=== PATIENT | male | born 1935 | race Caucasian/White ===

== ENCOUNTER → 2021-01-06 02:55 | Outpatient (CLI) | payer MEDICARE, SELFPAY ==
[2021-01-06 21:05] LABS: SARS-CoV-2 RNA PCR Negative
== END ==
PROVIDERS: PCP Internal Medicine; Visit Provider Plastic Surgery
DX: Z01.812 Encounter for preprocedural laboratory examination (principal); Z20.822 Contact with and (suspected) exposure to COVID-19
CPT/HCPCS: 36415; 85610; 85730; 93005; C9803; U0003; U0005

== ENCOUNTER 2021-01-06 12:46 | Outpatient (CLI) | payer MEDICARE, SELFPAY ==
--- NOTE | 2021-01-06 10:00 | ECG_ITS ---
Measurements Intervals [place] Rate: 75 P: MI: 0 QRS: 61 QRSD: 155 T: -18 QT: 428 QTc: 478 Interpretive Statements ATRIAL FIBRILLATION VENTRICULAR PREMATURE COMPLEX RIGHT BUNDLE BRANCH BLOCK BASELINE ARTIFACT- I, II, III, AVR, AVL,A VF ABNORMAL ECG Electronically Signed On 01-06-2021 10:50:22 CDT by Randal Payne D.O.
[2021-01-06 10:35] LABS: INR 1.6; Prothrombin Time 19.2 Seconds (11.1-14.7)
[2021-01-06 10:36] LABS: Partial Thromboplastin Time 32.3 SECONDS (22.3-36.8)
== END 2021-01-06 12:47 ==
LOC: ANHSURGERY 01-30 12:47
PROVIDERS: Anesthesiology; PCP Internal Medicine; Visit Provider Plastic Surgery
DX: Z79.01 Long term (current) use of anticoagulants (principal); I10 Essential (primary) hypertension; Z01.818 Encounter for other preprocedural examination; I48.91 Unspecified atrial fibrillation; I45.10 Unspecified right bundle-branch block
CPT/HCPCS: 36415; 85610; 85730; 93005

== ENCOUNTER 2021-01-09 01:27 | Day surgery (SDC) | payer MEDICARE, SELFPAY ==
[2021-01-02 10:23] VITALS: BMI 27.8
--- NOTE | 2021-01-03 09:06 | PC.NURSE ---
PT CALLED TO REPORT NOW ON ANTIBIOTIC FOR UTI - MED REC UPDATED
--- NOTE | 2021-01-08 09:43 | WPDANESEPPF ---
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 Patient Data Age: 85 Gender: M Height: 1.78 m Weight: 88.18 kg Allergies Allergy/AdvReac Type Severity Reaction Status Date / Time adhesive Allergy Mild AC OF Verified 01/02/21 10:05 SKIN Home Medications Medication Instructions Recorded Confirmed Type atorvastatin 20 mg PO HS 01/02/21 01/02/21 History doxazosin [Cardura] 1 mg PO HS 01/02/21 01/02/21 History finasteride 5 mg HS 01/02/21 01/02/21 History hydrochlorothiazide 12.5 mg PO QAM 01/02/21 01/02/21 History isosorbide mononitrate 60 mg PO QAM 01/02/21 01/09/21 History lisinopril 10 mg QAM 01/02/21 01/02/21 History metoprolol tartrate 50 mg PO HS 01/02/21 01/09/21 History warfarin See Rx Instructions .ROUTE .COMPLEX 01/02/21 01/09/21 History nitrofurantoin 100 mg PO Q12H 01/03/21 01/03/21 History Patient hx anesthesia problems: none Family hx anesthesia problems: none [facility] Past Medical History Medical History (Updated 01/08/21 @ 09:45 by Aj Alexandra MD) Atrial fibrillation BPH (benign prostatic hyperplasia) HTN (hypertension) Hyperlipidemia Osteoarthritis Overweight (BMI 25.0-29.9) Social History Social History Smoking status: Former smoker Second hand tobacco smoke exposure: No Additional smoking assessment comments: STATES SMOKED 1PK/DAY/LATE 60'S -70'S Alcohol intake: current Drinks per week: 3 Substance use: never Substance use type: does not use Living arrangements: alone Spiritual care concerns: No Anes - Eval Final PreProcedure Day of Procedure 01/08/21 09:43 Patient weight: overweight Heart: regular rate and rhythm Lungs: clear to auscultation and normal air movement Airway: Mallampati scale class II Neurological: alert and oriented Last oral intake: >/= 8 hours ASA classification: III Emergent: no Anesthetic plan: proceed Anesthesia type and monitoring: general LMA and ETT Informed Consent: The patient's anesthetic plan and its attendant risks and benefits were discussed with the patient/family/POA. Questions were solicited and answers provided to the satisfaction of the patient/family/POA.
--- NOTE | 2021-01-09 07:14 | WPDHPUPDATE1 ---
History and Physical Update Update Date/Time: 01/09/21 07:14 History and Physical has been reviewed, including an updated exam of the patient. There are NO changes in the patient's condition. Risks, benefits, and alternatives have been discussed and questions answered. Patient agrees to proceed with procedure.
[2021-01-09] MEDS: LACTATED RINGERS 1,000 ML 30 ML IV CONT ×2 (08:49→12:09)
[2021-01-09 09:29] VITALS: BP 139/78; PULSE 90; TEMP 36.1; O2SAT 99
[2021-01-09] MEDS: LIDO 1%/EPINEPHRINE 1:100,000 50 ML VIAL 10 ML INFILTRATE (10:35)
[2021-01-09] MEDS: BACITRACIN OINTMENT 15 GM TUBE 1 APPLIC TOPICAL (10:35)
--- NOTE | 2021-01-09 10:36 | SUR.PREOP ---
1030- pt up to the restroom to void
[2021-01-09 12:09] VITALS: BP 138/60; PULSE 88; RESP 14; TEMP 37.1; O2SAT 93
--- NOTE | 2021-01-09 12:25 | PM.OP ---
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 1 cm excision of the neoplasm of unspecified behavior of the left zygoma with intermediate repair 3 cm for permanent section Anesthesia: MAC Surgeon: Orlando Goldman MD [employer] Manager: Jessie Estimated blood loss (mL): 5 Drains: No Packing: No Pathology: yes Complications: No immediate complications Condition: stable Disposition: same day
[2021-01-09 12:35] VITALS: BP 119/67; PULSE 72; RESP 14; O2SAT 96
[2021-01-09 12:55] VITALS: BP 109/68; PULSE 76; RESP 14; O2SAT 95
[2021-01-09 13:15] VITALS: BP 119/67; PULSE 60; RESP 16; O2SAT 95
--- NOTE | 2021-01-09 13:45 | P.OP_ITS ---
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 1 cm excision of neoplasm of unspecified behavior of the left zygoma with permanent section and intermediate repair 3 cm Description of procedure: The 2 sites were marked according to diagram on the patient's face in holding area. He was taken to the operating placed supine operating table time-out was held and confirmed. He was given IV sedation tire face and prepped and draped the fashion. The 2 sites for excision was carefully marked with a pen. Each was infiltrated with 1% lidocaine with epinephrine. The lesion from the nasal lobule was taken 1st is the full-thickness skin ellipse just outside of our marking. Most superior aspect was marked with a suture designated 12 o'clock. This tissue was sent for frozen section. The pathologist reports that margins were free on the basaosquamous cell carcinoma. The the site was closed with a bilobed flap from the left side inset with 4-0 Vicryl and closed with a running 5 0 nylon suture. The lesion from the zygoma was taken as a full-thickness skin ellipse and sent for permanent section. That wound was closed in intermediate fashion with 4-0 Vicryl and running 5 0 nylon. The patient is discharged home with instructions in wound care and follow-up he has a prescription for cephalexin 15. And some Tramadol. Anesthesia: MAC Surgeon: Orlando Goldman MD Climatologist: Jessie Estimated blood loss (mL): 5 Drains: No Packing: No Pathology: yes Complications: No immediate complications Condition: stable Disposition: same day
== END 2021-01-09 13:35 | disposition home or self-care (01) ==
PROVIDERS: PCP Internal Medicine; Visit Provider Plastic Surgery
PROC: (CPT 14060; principal; 2021-01-09 10:00)
DX: C44.321 Squamous cell carcinoma of skin of nose (principal); C44.329 Squamous cell carcinoma of skin of other parts of face; I48.91 Unspecified atrial fibrillation; Z87.891 Personal history of nicotine dependence; N40.0 Benign prostatic hyperplasia without lower urinary tract symptoms; E78.5 Hyperlipidemia, unspecified; M19.90 Unspecified osteoarthritis, unspecified site; I10 Essential (primary) hypertension; Z79.01 Long term (current) use of anticoagulants
CPT/HCPCS: 14060; 11641; 12052; 88305; 88331; A9270; J1100; J2370; J2405; J2704; J3010; J7120